=== PATIENT | male | born 1960 | race Two or more races ===

== ENCOUNTER 2019-03-23 22:52 | Inpatient (IN) | payer MEDICAID ==
[~2019-03-23] VITALS: Ht 170.2 cm; Wt 63.5 kg
[2019-03-23] MEDS ORDERED: PIPERACILLIN/TAZ 3.375G PREMIX 50 ML IV ONE (23:15)
[2019-03-23] MEDS ORDERED: SODIUM CHLORIDE 0.9% 1000ML BAG (SEPSIS BOLUS) IV ONE (23:15)
[2019-03-23 23:23] LABS: HEMATOCRIT. 30.4 % (42.0-52.0); HEMOGLOBIN. 10.3 g/dL (14.0-18.0); MEAN CORPUSCULAR HEMOGLOBIN 31.7 pg (28.0-32.0); MEAN CORPUSCULAR VOLUME 93.7 fL (80.0-94.0); MEAN PLATELET VOLUME 8.3 fl (7.4-10.4); PLATELET 124 x1000/uL (130-400); RED BLOOD CELL COUNT 3.24 mill/uL (4.7-6.1); RED CELL DISTRIBUTION WIDTH 17.4 % (11.6-14.6)
[2019-03-23 23:26] LABS: CHLORIDE 104 mEq/L (98-107); INR 1.3; PROTHROMBIN TIME 13.2 sec (9.6-11.0)
[2019-03-23 23:55] LABS: CLARITY URINE CLOUDY (CLEAR); COLOR URINE ORANGE (YELLOW); KETONES URINE NEGATIVE (NEGATIVE); LEUKOCYTE ESTERASE URINE 3+ (NEGATIVE); NITRITE URINE NEGATIVE (NEGATIVE); OCCULT BLOOD URINE 3+ (NEGATIVE); PROTEIN URINE NEGATIVE (NEGATIVE); SPECIFIC GRAVITY URINE 1.008 (1.005-1.030); UROBILINOGEN URINE 0.2 E.U./dL (0.2-1.0)
[2019-03-24] VITALS (87 sets, daily range): BP systolic 69–163; BP diastolic 32–63
[2019-03-24] MEDS ORDERED: NA PHOS,M-B/NA PHOS,DI-BA ENEMA 118ML PR PRN
[2019-03-24] MEDS ORDERED: ONDANSETRON HCL 4MG/2ML INJ IV PRN
[2019-03-24] MEDS ORDERED: HYDROCODONE/ACETAMINOPHEN 10/325MG TABLET PO PRN
[2019-03-24] MEDS ORDERED: ACETAMINOPHEN 325MG TABLET PO PRN
[2019-03-24] MEDS ORDERED: DOCUSATE SODIUM 100MG CAPSULE PO PRN
[2019-03-24] MEDS ORDERED: CLONIDINE 0.1MG TABLET PO PRN
[2019-03-24] MEDS ORDERED: HYDRALAZINE 20MG/ML VIAL IV PRN
[2019-03-24] MEDS ORDERED: LORAZEPAM 2MG/ML CPJ IV PRN
[2019-03-24] MEDS ORDERED: MAGNESIUM/ALUMINUM HYDROXIDE/SIMETHICONE 30ML UDC PO PRN
[2019-03-24] MEDS ORDERED: NOREPINEPHRINE 4MG/250ML PMX 250 ML IV SCH ×2 (00:45)
[2019-03-24] MEDS ORDERED: NOREPINEPHRINE 4 MG in DEXT 5% WATER 246 ML IV ONE (00:45)
[2019-03-24] MEDS ORDERED: VANCOMYCIN 1 G PREMIX 200 ML IV SCH ×2 (02:30→04:00)
[2019-03-24] MEDS: SODIUM CHLORIDE 0.9% 1,000 ML IV SCH ×2 (02:55→15:56)
[2019-03-24 03:03] LABS: PLATELET ESTIMATE NORMAL
[2019-03-24] MEDS: MORPHINE SULFATE 2 MG/ML CPJ (NOT FOR IM USE) IV PRN ×3 (03:48→18:33)
[2019-03-24] MEDS: NOREPINEPHRINE 16 MG in DEXT 5% WATER 234 ML IV PRN ×2 (03:55→16:18)
[2019-03-24] MEDS ORDERED: NOREPINEPHRINE 4 MG in DEXT 5% WATER 246 ML IV SCH ×4 (04:00)
[2019-03-24 05:20] LABS: HEMATOCRIT. 25.9 % (42.0-52.0); MEAN CORPUSCULAR HEMOGLOBIN 32.3 pg (28.0-32.0); MEAN CORPUSCULAR VOLUME 92.6 fL (80.0-94.0); MEAN PLATELET VOLUME 7.8 fl (7.4-10.4); PLATELET 77 x1000/uL (130-400); RED CELL DISTRIBUTION WIDTH 16.9 % (11.6-14.6)
[2019-03-24 05:23] LABS: CHLORIDE 108 mEq/L (98-107)
[2019-03-24 05:35] LABS: CREATINE KINASE 103 IU/L (39-308)
[2019-03-24] MEDS: SODIUM CHLORIDE 0.9% INJ 3ML FLUSH IVF SCH ×3 (06:20→22:00)
[2019-03-24] MEDS ORDERED: PIPERACILLIN/TAZOBACTAM 3.375 G in DEXT 5% WATER 100 ML IV SCH (08:00)
[2019-03-24] MEDS ORDERED: ENOXAPARIN 40MG/0.4ML SYR SUBCUT SCH (09:00)
[2019-03-24 09:37] LABS: PLATELET ESTIMATE DECREASED
[2019-03-24] MEDS ORDERED: POTASSIUM CHLORIDE 20MEQ TABLET SR PO NR ×2 (10:45→12:30)
[2019-03-24] MEDS: VANCOMYCIN 750 MG PREMIX 150 ML IV SCH ×2 (12:08→19:52)
[2019-03-24] MEDS: PIPERACILLIN/TAZOBACTAM 3.375 G in DEXT 5% WATER 100 ML IV SCH (16:17)
[2019-03-24 16:59] LABS: CREATINE KINASE 392 IU/L (39-308)
[2019-03-24 17:00] LABS: CREATINE KINASE MB FRACTION 1.1 ng/mL (0.5-3.6)
[2019-03-24] MEDS ORDERED: IOHEXOL-300 100 ML BOTTLE ONE (21:03)
[2019-03-25] VITALS (96 sets, daily range): BP systolic 81–140; BP diastolic 30–75
[2019-03-25] MEDS: PIPERACILLIN/TAZOBACTAM 3.375 G in DEXT 5% WATER 100 ML IV SCH ×3 (01:00→16:28)
[2019-03-25] MEDS: MORPHINE SULFATE 2 MG/ML CPJ (NOT FOR IM USE) IV PRN (01:07)
[2019-03-25] MEDS: VANCOMYCIN 750 MG PREMIX 150 ML IV SCH ×2 (03:11→11:22)
[2019-03-25] MEDS: SODIUM CHLORIDE 0.9% 1,000 ML IV SCH ×3 (04:55→18:47)
[2019-03-25 05:40] LABS: CHLORIDE 107 mEq/L (98-107)
[2019-03-25 05:46] LABS: HEMATOCRIT. 23.9 % (42.0-52.0); HEMOGLOBIN. 8.3 g/dL (14.0-18.0); MEAN CORPUSCULAR HEMOGLOBIN 31.8 pg (28.0-32.0); MEAN CORPUSCULAR VOLUME 91.2 fL (80.0-94.0); MEAN PLATELET VOLUME 8.2 fl (7.4-10.4); RED BLOOD CELL COUNT 2.62 mill/uL (4.7-6.1); RED CELL DISTRIBUTION WIDTH 16.9 % (11.6-14.6)
[2019-03-25] MEDS: SODIUM CHLORIDE 0.9% INJ 3ML FLUSH IVF SCH ×3 (06:00→22:00)
[2019-03-25 06:59] LABS: PLATELET 32 x1000/uL (130-400)
[2019-03-25] MEDS ORDERED: POTASSIUM CHLORIDE 20MEQ TABLET SR PO NR (08:15)
[2019-03-25] MEDS ORDERED: NOREPINEPHRINE 16 MG in DEXT 5% WATER 234 ML IV PRN (08:22)
[2019-03-25] MEDS: NOREPINEPHRINE 16 MG in DEXT 5% WATER 234 ML IV PRN (08:57)
[2019-03-25 09:21] LABS: PLATELET ESTIMATE MARKEDLY DECREASED
[2019-03-25] MEDS ORDERED: VANCOMYCIN 750 MG PREMIX 150 ML IV SCH (14:00)
[2019-03-26] VITALS (103 sets, daily range): BP systolic 76–149; BP diastolic 33–74
[2019-03-26] MEDS: PIPERACILLIN/TAZOBACTAM 3.375 G in DEXT 5% WATER 100 ML IV SCH ×3 (01:18→17:13)
[2019-03-26 05:22] LABS: HEMATOCRIT. 21.6 % (42.0-52.0); HEMOGLOBIN. 7.4 g/dL (14.0-18.0); MEAN CORPUSCULAR HEMOGLOBIN 31.2 pg (28.0-32.0); MEAN CORPUSCULAR VOLUME 90.9 fL (80.0-94.0); MEAN PLATELET VOLUME 8.4 fl (7.4-10.4); RED BLOOD CELL COUNT 2.38 mill/uL (4.7-6.1); RED CELL DISTRIBUTION WIDTH 16.9 % (11.6-14.6)
[2019-03-26 05:29] LABS: CHLORIDE 109 mEq/L (98-107)
[2019-03-26 05:55] LABS: PLATELET 19 x1000/uL (130-400)
[2019-03-26] MEDS: SODIUM CHLORIDE 0.9% 1,000 ML IV SCH ×2 (06:54→15:23)
[2019-03-26] MEDS: SODIUM CHLORIDE 0.9% INJ 3ML FLUSH IVF SCH ×3 (06:55→22:12)
[2019-03-26] MEDS ORDERED: POTASSIUM CHLORIDE INJ 40 MEQ in DEXT 5% WATER 250 ML IV NR (09:00)
[2019-03-26 09:16] LABS: PLATELET ESTIMATE MARKEDLY DECREASED
[2019-03-26] MEDS ORDERED: POTASSIUM CHLORIDE INJ 40 MEQ in DEXT 5% WATER 250 ML IV SCH (21:00)
[2019-03-26] MEDS ORDERED: KCL 20MEQ/100ML PREMIX 100 ML IV ONE (21:00)
[2019-03-27] VITALS (63 sets, daily range): BP systolic 93–150; BP diastolic 37–93
[2019-03-27] MEDS: PIPERACILLIN/TAZOBACTAM 3.375 G in DEXT 5% WATER 100 ML IV SCH ×3 (00:24→17:14)
[2019-03-27] MEDS: SODIUM CHLORIDE 0.9% 1,000 ML IV SCH ×3 (00:24→21:11)
[2019-03-27] MEDS: DIPHENHYDRAMINE 50MG/ML VIAL IV PRN (02:19)
[2019-03-27] MEDS: MORPHINE SULFATE 2 MG/ML CPJ (NOT FOR IM USE) IV PRN (02:20)
[2019-03-27 05:25] LABS: HEMATOCRIT. 24.6 % (42.0-52.0); HEMOGLOBIN. 8.6 g/dL (14.0-18.0); MEAN CORPUSCULAR HEMOGLOBIN 31.1 pg (28.0-32.0); MEAN CORPUSCULAR VOLUME 89.1 fL (80.0-94.0); MEAN PLATELET VOLUME 8.4 fl (7.4-10.4); RED BLOOD CELL COUNT 2.76 mill/uL (4.7-6.1); RED CELL DISTRIBUTION WIDTH 16.6 % (11.6-14.6)
[2019-03-27 05:30] LABS: CHLORIDE 113 mEq/L (98-107)
[2019-03-27] MEDS: SODIUM CHLORIDE 0.9% INJ 3ML FLUSH IVF SCH ×3 (05:51→23:46)
[2019-03-27 06:11] LABS: PLATELET 23 x1000/uL (130-400)
[2019-03-27 08:11] LABS: PLATELET ESTIMATE MARKEDLY DECREASED
[2019-03-27] MEDS ORDERED: THROAT LOZENGES-BENZOCAINE/MENTH/CETYLPYRD CL LOZENGES MM PRN (12:30)
[2019-03-28] VITALS (8 sets, daily range): BP systolic 95–163; BP diastolic 51–78
[2019-03-28] MEDS: PIPERACILLIN/TAZOBACTAM 3.375 G in DEXT 5% WATER 100 ML IV SCH ×2 (01:39→08:51)
[2019-03-28] MEDS: GUAIFENESIN 200MG/10ML SUGAR FREE UDC PO PRN (03:11)
[2019-03-28] MEDS: SODIUM CHLORIDE 0.9% INJ 3ML FLUSH IVF SCH ×3 (05:06→23:03)
[2019-03-28] MEDS: SODIUM CHLORIDE 0.9% 1,000 ML IV SCH ×2 (06:14→16:14)
[2019-03-28 07:41] LABS: CHLORIDE 112 mEq/L (98-107)
[2019-03-28 07:44] LABS: HEMATOCRIT. 27.6 % (42.0-52.0); HEMOGLOBIN. 9.5 g/dL (14.0-18.0); MEAN PLATELET VOLUME 8.7 fl (7.4-10.4); RED BLOOD CELL COUNT 3.07 mill/uL (4.7-6.1); RED CELL DISTRIBUTION WIDTH 17.1 % (11.6-14.6)
[2019-03-28 08:00] LABS: PLATELET 33 x1000/uL (130-400)
[2019-03-28] MEDS ORDERED: POTASSIUM CHLORIDE 20MEQ TABLET SR PO NR ×2 (10:15→16:00)
[2019-03-28 17:15] LABS: PLATELET ESTIMATE MARKEDLY DECREASED
[2019-03-28] MEDS ORDERED: CEFTRIAXONE 1 G PREMIX 50 ML IV SCH (18:00)
[2019-03-28] MEDS ORDERED: VANCOMYCIN 1 G PREMIX 200 ML IV SCH (18:15)
[2019-03-28] MEDS ORDERED: SODIUM CHLORIDE 0.45% 500 ML IV NR (18:45)
[2019-03-28 18:46] LABS: BG BASE EXCESS -4.9 mmol/L (-2.0-2.0); BG CARBOXYHEMOGLOBIN 0.7 % (0.5-1.5); BG DEOXYHEMOGLOBIN 13.1 % (0.0-5.0); BG FRACTION INSPIRED OXYGEN 40; BG HCO3 ACT 18.8 mmol/L (22.0-26.0); BG METHEMOGLOBIN 0.4 % (0.0-1.5); BG OXYGEN SATURATION 86.8 % (92.0-98.5); BG OXYHEMOGLOBIN 85.8 % (94.0-97.0); BG PCO2 29.4 mmHg (35.0-45.0); BG PH 7.423 (7.350-7.450); BG PO2 52.8 mmHg (75.0-100.0); BG SAMPLE SITE LEFT BRACHIAL; BG VENT MODE NASAL CANNULA
[2019-03-28] MEDS ORDERED: VANCOMYCIN 750 MG PREMIX 150 ML IV SCH (19:00)
[2019-03-28] MEDS: VANCOMYCIN 750 MG PREMIX 150 ML IV SCH (22:26)
[2019-03-28] MEDS ORDERED: NOREPINEPHRINE 8 MG in DEXT 5% WATER 242 ML IV PRN (23:45)
[2019-03-29] VITALS (78 sets, daily range): BP systolic 95–153; BP diastolic 54–86
[2019-03-29] MEDS: SODIUM CHLORIDE 0.9% 1,000 ML IV SCH ×2 (01:29→12:51)
[2019-03-29] MEDS: DIPHENHYDRAMINE 50MG/ML VIAL IV PRN ×3 (04:02→21:51)
[2019-03-29] MEDS: SODIUM CHLORIDE 0.9% INJ 3ML FLUSH IVF SCH ×3 (05:23→21:20)
[2019-03-29] MEDS: VANCOMYCIN 750 MG PREMIX 150 ML IV SCH ×3 (05:23→21:19)
[2019-03-29 06:26] LABS: CHLORIDE 114 mEq/L (98-107)
[2019-03-29 06:26] LABS: HEMATOCRIT. 22.2 % (42.0-52.0); HEMOGLOBIN. 7.7 g/dL (14.0-18.0); MEAN CORPUSCULAR HEMOGLOBIN 30.9 pg (28.0-32.0); MEAN CORPUSCULAR VOLUME 89.1 fL (80.0-94.0); MEAN PLATELET VOLUME 9.2 fl (7.4-10.4); RED BLOOD CELL COUNT 2.49 mill/uL (4.7-6.1); RED CELL DISTRIBUTION WIDTH 16.9 % (11.6-14.6)
[2019-03-29 07:06] LABS: PLATELET 25 x1000/uL (130-400)
[2019-03-29] MEDS ORDERED: POTASSIUM CHLORIDE 20MEQ TABLET SR PO SCH (07:45)
[2019-03-29 08:24] LABS: PLATELET ESTIMATE MARKEDLY DECREASED
[2019-03-29] MEDS ORDERED: NOREPINEPHRINE 8 MG in DEXT 5% WATER 242 ML IV SCH (10:30)
[2019-03-29 15:40] LABS: HEMATOCRIT 26.3 % (42.0-52.0); HEMOGLOBIN 9.2 g/dL (14.0-18.0)
[2019-03-29] MEDS: MEROPENEM 1,000 MG in SODIUM CHLORIDE 0.9% 100 ML IV SCH ×2 (16:36→21:19)
[2019-03-29] MEDS ORDERED: MORPHINE SULFATE 2 MG/ML CPJ (NOT FOR IM USE) IV PRN (21:15)
[2019-03-29] MEDS ORDERED: HYDROCODONE/ACETAMINOPHEN 10/325MG TABLET PO PRN (21:15)
[2019-03-29] MEDS: DEXT 5%/0.45% NACL 1000ML 1,000 ML IV SCH (21:20)
[2019-03-29] MEDS: IPRATROPIUM/ALBUTEROL 0.5-3(2.5)MG/3ML NEB INH PRN (23:00)
[2019-03-30] VITALS (47 sets, daily range): BP systolic 91–144; BP diastolic 32–83
[2019-03-30] MEDS: MEROPENEM 1,000 MG in SODIUM CHLORIDE 0.9% 100 ML IV SCH ×3 (05:00→21:00)
[2019-03-30 05:04] LABS: HEMATOCRIT. 29.8 % (42.0-52.0); HEMOGLOBIN. 10.3 g/dL (14.0-18.0); MEAN CORPUSCULAR VOLUME 89.2 fL (80.0-94.0); RED BLOOD CELL COUNT 3.34 mill/uL (4.7-6.1); RED CELL DISTRIBUTION WIDTH 16.4 % (11.6-14.6)
[2019-03-30 05:11] LABS: PLATELET 43 x1000/uL (130-400)
[2019-03-30 05:20] LABS: CHLORIDE 114 mEq/L (98-107)
[2019-03-30] MEDS: VANCOMYCIN 750 MG PREMIX 150 ML IV SCH (05:28)
[2019-03-30] MEDS: SODIUM CHLORIDE 0.9% INJ 3ML FLUSH IVF SCH ×3 (05:30→21:11)
[2019-03-30 05:32] LABS: VANCOMYCIN TROUGH 19.7 ug/mL (5.0-10.0)
[2019-03-30] MEDS: DEXT 5%/0.45% NACL 1000ML 1,000 ML IV SCH ×2 (07:51→17:44)
[2019-03-30 13:31] LABS: NUCLEATED RED BLOOD CELLS 1 /100 WBC; PLATELET ESTIMATE MARKEDLY DECREASED
[2019-03-30] MEDS: IPRATROPIUM/ALBUTEROL 0.5-3(2.5)MG/3ML NEB INH PRN (15:19)
[2019-03-30] MEDS: IPRATROPIUM/ALBUTEROL 0.5-3(2.5)MG/3ML NEB HHN SCH ×2 (15:19→20:19)
[2019-03-30] MEDS: VANCOMYCIN 1 G PREMIX 200 ML IV SCH (17:44)
[2019-03-30] MEDS ORDERED: GUAIFENESIN 600MG ER TABLET PO PRN (20:45)
[2019-03-30] MEDS: GUAIFENESIN 200MG/10ML SUGAR FREE UDC PO PRN (21:00)
[2019-03-31] VITALS (93 sets, daily range): BP systolic 48–147; BP diastolic 17–95
[2019-03-31] MEDS: IPRATROPIUM/ALBUTEROL 0.5-3(2.5)MG/3ML NEB HHN SCH ×3 (00:14→08:29)
[2019-03-31 01:52] LABS: BG BASE EXCESS -5.8 mmol/L (-2.0-2.0); BG CARBOXYHEMOGLOBIN 0.2 % (0.5-1.5); BG DEOXYHEMOGLOBIN 5.5 % (0.0-5.0); BG FRACTION INSPIRED OXYGEN 100; BG HCO3 ACT 21.7 mmol/L (22.0-26.0); BG METHEMOGLOBIN 0.3 % (0.0-1.5); BG OXYGEN SATURATION 94.5 % (92.0-98.5); BG PCO2 52.4 mmHg (35.0-45.0); BG PH 7.234 (7.350-7.450); BG PO2 80.1 mmHg (75.0-100.0); BG SAMPLE SITE RIGHT RADIAL; BG TOTAL HEMOGLOBIN 9.6 g/dL (12.0-18.0); BG VENT MODE MASK - NRB
[2019-03-31] MEDS ORDERED: ALBUMIN HUMAN 25GM/100ML (25%) IV NR (02:15)
[2019-03-31] MEDS: DEXT 5%/0.45% NACL 1000ML 1,000 ML IV SCH ×2 (04:27→14:17)
[2019-03-31] MEDS: PHENYLEPHRINE 40 MG in DEXT 5% WATER 246 ML IV PRN ×2 (04:50→10:39)
[2019-03-31] MEDS: VANCOMYCIN 1 G PREMIX 200 ML IV SCH (05:44)
[2019-03-31] MEDS: SODIUM CHLORIDE 0.9% INJ 3ML FLUSH IVF SCH ×2 (05:44→14:11)
[2019-03-31] MEDS: MEROPENEM 1,000 MG in SODIUM CHLORIDE 0.9% 100 ML IV SCH ×2 (05:44→14:17)
[2019-03-31 05:59] LABS: CHLORIDE 114 mEq/L (98-107)
[2019-03-31 06:19] LABS: HEMATOCRIT. 23.3 % (42.0-52.0); HEMOGLOBIN. 7.9 g/dL (14.0-18.0); MEAN CORPUSCULAR HEMOGLOBIN 30.8 pg (28.0-32.0); MEAN CORPUSCULAR VOLUME 90.5 fL (80.0-94.0); MEAN PLATELET VOLUME 9.1 fl (7.4-10.4); RED BLOOD CELL COUNT 2.57 mill/uL (4.7-6.1); RED CELL DISTRIBUTION WIDTH 16.7 % (11.6-14.6)
[2019-03-31 06:25] LABS: PLATELET 40 x1000/uL (130-400)
[2019-03-31 08:12] LABS: BG BASE EXCESS -2.2 mmol/L (-2.0-2.0); BG BILEVEL POS AIRWAY PRESSURE ST=15/5; BG CARBOXYHEMOGLOBIN 0.5 % (0.5-1.5); BG DEOXYHEMOGLOBIN 3.7 % (0.0-5.0); BG FRACTION INSPIRED OXYGEN 70; BG HCO3 ACT 22.4 mmol/L (22.0-26.0); BG METHEMOGLOBIN 0.3 % (0.0-1.5); BG OXYGEN SATURATION 96.3 % (92.0-98.5); BG OXYHEMOGLOBIN 95.5 % (94.0-97.0); BG PCO2 37.5 mmHg (35.0-45.0); BG PH 7.394 (7.350-7.450); BG PO2 83.1 mmHg (75.0-100.0); BG PRESSURE SUPPORT 10; BG SAMPLE SITE RIGHT BRACHIAL; BG TOTAL HEMOGLOBIN 8.4 g/dL (12.0-18.0); BG VENT MODE MASK - BIPAP; BG VENT RATE 16 set
[2019-03-31 11:22] LABS: PLATELET ESTIMATE MARKEDLY DECREASED
[2019-03-31] MEDS: IPRATROPIUM BROMIDE (0.02%) 0.5MG/2.5ML NEB HHN SCH ×2 (12:20→16:00)
[2019-03-31] MEDS ORDERED: MORPHINE SULFATE 100 MG in DEXT 5% WATER 90 ML IV PRN (20:30)
[2019-03-31] MEDS ORDERED: ATROPINE SULFATE 1% OPHTH 2ML SL PRN (20:30)
[2019-03-31] MEDS ORDERED: LORAZEPAM 2MG/ML CPJ IV PRN (20:30)
[2019-03-31] MEDS ORDERED: MORPHINE SULFATE 250 MG in DEXT 5% WATER 240 ML IV PRN (20:45)
[2019-04-01] MEDS ORDERED: PANTOPRAZOLE 40MG DR TABLET PO SCH (07:50)
== END 2019-03-31 21:30 | disposition expired | DRG 720 ==
LOC: ER 23:03 → EDBEDREQTM 23:47 → EDBEDREQ 23:47 → ENRESERV 03-24 01:03 → 5EST 03-24 02:14 → EDBEDREQSVC 03-24 02:14 → MICUSO 03-24 02:20 → 6WST 03-27 16:59 → CVICU 03-29 01:06
PROVIDERS: ADMIT Internal Medicine; ATTEND Internal Medicine
PROC: 02HV33Z Insertion of Infusion Device into Superior Vena Cava, Percutaneous Approach (ICD-10-PCS; 2019-03-23)
PROC: B548ZZA Ultrasonography of Superior Vena Cava, Guidance (ICD-10-PCS; 2019-03-23)
PROC: 30233N1 Transfusion of Nonautologous Red Blood Cells into Peripheral Vein, Percutaneous Approach (ICD-10-PCS; principal; 2019-03-26)
PROC: 5A09357 Assistance with Respiratory Ventilation, Less than 24 Consecutive Hours, Continuous Positive Airway Pressure (ICD-10-PCS; 2019-03-31)
DX: A41.51 Sepsis due to Escherichia coli [E. coli] (principal); J96.00 Acute respiratory failure, unspecified whether with hypoxia or hypercapnia; R65.21 Severe sepsis with septic shock; J69.0 Pneumonitis due to inhalation of food and vomit; L89.119 Pressure ulcer of right upper back, unspecified stage; E43 Unspecified severe protein-calorie malnutrition; D61.818 Other pancytopenia; C22.8 Malignant neoplasm of liver, primary, unspecified as to type; A41.50 Gram-negative sepsis, unspecified; L89.153 Pressure ulcer of sacral region, stage 3; Z66 Do not resuscitate; Z51.5 Encounter for palliative care; C79.51 Secondary malignant neoplasm of bone; D68.9 Coagulation defect, unspecified; C18.9 Malignant neoplasm of colon, unspecified; N39.0 Urinary tract infection, site not specified; E87.6 Hypokalemia; E83.51 Hypocalcemia; E78.5 Hyperlipidemia, unspecified; I25.10 Atherosclerotic heart disease of native coronary artery without angina pectoris; I27.20 Pulmonary hypertension, unspecified; I50.9 Heart failure, unspecified; R47.02 Dysphasia; E21.3 Hyperparathyroidism, unspecified; C79.82 Secondary malignant neoplasm of genital organs; D64.9 Anemia, unspecified; I11.0 Hypertensive heart disease with heart failure; Z68.21 Body mass index [BMI] 21.0-21.9, adult; Z95.1 Presence of aortocoronary bypass graft; Z85.05 Personal history of malignant neoplasm of liver; I25.2 Old myocardial infarction; Z88.2 Allergy status to sulfonamides
CPT/HCPCS: 36415; 36600; 71045; 74178; 80048; 80202; 81003; 82375; 82550; 82553; 82805; 82962; 83605; 84134; 84145; 84484; 85014; 85018; 86850; 86900; 86920; 87070; 87077; 87186; 92610; 93005; 93306; 93970; 94640; 94660; 96365; 97162; 97167; 97530; 99291; J0696; J1200; J2185; J2270; J2370; J2405; J2543; J3370; J3480; J3490; J7030; J7050; J7060; J7620; P9016; P9021; P9047; Q9967